=== PATIENT | female | born 1995 | race Caucasian/White ===

== ENCOUNTER 2017-01-27 19:25 | Emergency (ER) | payer SELFPAY ==
[~2017-01-27] VITALS: Ht 170.2 cm; Wt 72.9 kg
[~2017-01-27 19:25] MED LIST: ENDOCET 5-3251 EACH PO; IBUPROFEN800 MG PO; KEFLEX500 MG PO; PRENATAL TABLE1 EAC3 PO
[2017-01-27 23:13] VITALS: BP 102/64
== END 2017-01-27 23:17 | disposition home or self-care (01) ==
LOC: EME 19:25 → RME 19:25
DX: R51 Headache (principal); Z88.2 Allergy status to sulfonamides; Z86.79 Personal history of other diseases of the circulatory system; F17.200 Nicotine dependence, unspecified, uncomplicated
CPT/HCPCS: 70450; 99281; 99285; J0780; J1100; J7030; J7050

== ENCOUNTER 2017-02-10 07:03 | Emergency (ER) | payer SELFPAY ==
[~2017-02-10] VITALS: Ht 170.2 cm; Wt 72.8 kg
[2017-02-10 07:53] LABS: HEMATOCRIT 39.2 % (36.0-46.0); MCH 34.4 PG (29.0-34.0); MCHC 33.4 G/DL (30.0-36.0); MCV 102.9 FL (83-99); MEAN PLAT.VOLUME 11.7 uM^3 (9.5-12.4); PLATELET COUNT 283 K/uL (156-360); RBC DIS.WIDTH-CV 11.8 % (11.8-14.6); RBC DIS.WIDTH-SD 44.9 % (39-53); RED BLOOD COUNT 3.81 M/uL (3.80-5.20); WHITE BLOOD COUNT 11.7 K/uL (4.1-10.2)
[2017-02-10 08:18] LABS: QUANTITATIVE HCG < 4.0 MIU/ML
[2017-02-10 08:24] LABS: CHLORIDE 107 mEq/L (99-109); POTASSIUM 4.3 mEq/L (3.7-5.4); SODIUM 139 mEq/L (136-147)
[2017-02-10 08:27] LABS: GLUCOSE 95 mg/dL (70-99)
[2017-02-10 08:28] LABS: ANION GAP 7 MEQ/L (2-14)
[2017-02-10 08:29] LABS: TOTAL BILIRUBIN 0.2 mg/dL (0.0-1.0)
[2017-02-10 08:30] LABS: ALKALINE PHOSPHATASE 53 IU/L (3-129); GFR ESTIMATE (CALCULATED) > 59 mL/min/
[2017-02-10 08:31] LABS: UREA NITROGEN (BUN) 16 mg/dL (9-23)
[2017-02-10 08:34] LABS: LIPASE 24 U/L (1.0-51.0)
[2017-02-10 11:24] LABS: ADD MIUA? YES; BILIRUBIN NEGATIVE; BLOOD NEGATIVE; COLOR YELLOW ((YELLOW)); GLUCOSE (STRIP) NEGATIVE; KETONES NEGATIVE; LEUKOCYTES MODERATE; NITRITE POSITIVE; PROTEIN (STRIP) NEGATIVE; UROBILINOGEN 0.2 MG/DL (0.2-1.0)
[2017-02-10 11:45] LABS: BACTERIA RARE /HPF; EPITHELIAL CELLS RARE /HPF; MUCUS TRACE /LPF; RED BLOOD CELLS 0-5 /HPF (0-5); UCUL ADDED? NO
[2017-02-10] MEDS ORDERED: ZANTAC150 MG PO (11:49)
[2017-02-10 12:18] VITALS: BP 115/81
[2017-02-11] MEDS ORDERED: DOXYCYCLINE MO100 MG PO (00:40)
[2017-02-11] MEDS ORDERED: NORCO 5/3251 TABLET PO (00:40)
== END 2017-02-10 12:34 | disposition home or self-care (01) ==
LOC: EME 07:03
PROVIDERS: Emergency Medicine
DX: R10.31 Right lower quadrant pain (principal); F17.200 Nicotine dependence, unspecified, uncomplicated
CPT/HCPCS: 74177; 76705; 80053; 81003; 83690; 84702; 85027; 99281; 99285; J2270; J2405

== ENCOUNTER 2017-02-10 21:20 | Emergency (ER) | payer SELFPAY ==
[~2017-02-10] VITALS: Ht 167.6 cm; Wt 71.4 kg
[~2017-02-10 21:20] MED LIST changes: +ZANTAC150 MG PO
[2017-02-10 23:34] LABS: EOSINOPHIL COUNT 0.1 K/uL (0-0.3); HEMATOCRIT 38.7 % (36.0-46.0); IMMATURE GRANULOCYTE (%) 0.6 % (0.0-0.7); IMMATURE GRANULOCYTE COUNT 0.1 K/uL; INSTRUMENT ABS NEUTROPHIL CT 6.7 K/uL; MCH 34.2 PG (29.0-34.0); MCHC 33.6 G/DL (30.0-36.0); MCV 101.8 FL (83-99); MEAN PLAT.VOLUME 11.8 uM^3 (9.5-12.4); MONOCYTE COUNT 0.5 K/uL (0-0.8); NEUTROPHIL (%) 64.2 % (45-76); NEUTROPHIL COUNT 6.7 K/uL (1.8-6.4); PLATELET COUNT 273 K/uL (156-360); RBC DIS.WIDTH-CV 11.9 % (11.8-14.6); WHITE BLOOD COUNT 10.5 K/uL (4.1-10.2)
[2017-02-11 00:01] LABS: CHLORIDE 107 mEq/L (99-109); SODIUM 141 mEq/L (136-147)
[2017-02-11 00:03] LABS: GLUCOSE 79 mg/dL (70-99)
[2017-02-11 00:04] LABS: ANION GAP 10 MEQ/L (2-14)
[2017-02-11 00:07] LABS: GFR ESTIMATE (CALCULATED) > 59 mL/min/
[2017-02-11 00:08] LABS: UREA NITROGEN (BUN) 10 mg/dL (9-23)
[2017-02-11 00:30] LABS: ADD MIUA? YES; BILIRUBIN NEGATIVE; BLOOD SMALL; COLOR YELLOW ((YELLOW)); GLUCOSE (STRIP) NEGATIVE; KETONES 5; LEUKOCYTES SMALL; NITRITE POSITIVE; PROTEIN (STRIP) NEGATIVE; SPECIFIC GRAVITY 1.017 (1.000-1.030); UROBILINOGEN 0.2 MG/DL (0.2-1.0)
[2017-02-11] MEDS ORDERED: DOXYCYCLINE MO100 MG PO (00:40)
[2017-02-11] MEDS ORDERED: NORCO 5/3251 TABLET PO (00:40)
[2017-02-11 00:53] VITALS: BP 98/71
[2017-02-11 00:56] LABS: BACTERIA 3+ /HPF; EPITHELIAL CELLS RARE /HPF; HYALINE CASTS 0-5 /LPF; MUCUS NONE SEEN /LPF; RED BLOOD CELLS 0-5 /HPF (0-5)
[2017-02-11 13:21] LABS: CHLAMYDIA TRACHOMATIS NEGATIVE; NEISSERIA GONORRHOEAE POSITIVE
== END 2017-02-11 00:59 | disposition home or self-care (01) ==
LOC: EME 21:20
PROVIDERS: Physician Assistant
DX: N73.9 Female pelvic inflammatory disease, unspecified (principal); F17.200 Nicotine dependence, unspecified, uncomplicated; N83.209 Unspecified ovarian cyst, unspecified side
CPT/HCPCS: 80048; 81003; 85025; 87210; 87491; 87591; 99281; 99284; J0696

== ENCOUNTER 2017-09-27 22:03 | Emergency (ER) | payer OTHER ==
[~2017-09-27] VITALS: Ht 167.6 cm; Wt 70.6 kg
[~2017-09-27 22:03] MED LIST changes: +DOXYCYCLINE MO100 MG PO; +NORCO 5/3251 TABLET PO
[2017-09-27 23:20] LABS: APPEARANCE SL.HAZY ((CLEAR)); BILIRUBIN NEGATIVE; BLOOD NEGATIVE; COLOR YELLOW ((YELLOW)); GLUCOSE (STRIP) NEGATIVE; KETONES NEGATIVE; LEUKOCYTES SMALL; NITRITE POSITIVE; PROTEIN (STRIP) NEGATIVE; UROBILINOGEN 0.2 MG/DL (0.2-1.0)
[2017-09-27 23:30] LABS: HEMATOCRIT 40.2 % (36.0-46.0); MCH 35.6 PG (29.0-34.0); MCHC 34.8 G/DL (30.0-36.0); MCV 102.3 FL (83-99); PLATELET COUNT 234 K/uL (156-360); RBC DIS.WIDTH-CV 11.9 % (11.8-14.6); RBC DIS.WIDTH-SD 45.1 % (39-53); RED BLOOD COUNT 3.93 M/uL (3.80-5.20); WHITE BLOOD COUNT 11.1 K/uL (4.1-10.2)
[2017-09-27 23:50] LABS: ALBUMIN 4.4 g/dL (3.2-4.8); CHLORIDE 103 mEq/L (99-109); POTASSIUM 4.4 mEq/L (3.7-5.4); SODIUM 135 mEq/L (136-147)
[2017-09-27 23:52] LABS: BACTERIA RARE /HPF; EPITHELIAL CELLS 1+ /HPF; MUCUS TRACE /LPF; RED BLOOD CELLS 0-5 /HPF (0-5); UCUL ADDED? YES
[2017-09-27 23:53] LABS: GLUCOSE 90 mg/dL (70-99); TOTAL PROTEIN 6.9 g/dL (6.4-8.3)
[2017-09-27 23:54] LABS: TOTAL BILIRUBIN 0.6 mg/dL (0.0-1.0)
[2017-09-27 23:56] LABS: ALKALINE PHOSPHATASE 46 IU/L (3-129); CREATININE 0.8 mg/dL (0.6-1.3); GFR ESTIMATE (CALCULATED) > 59 mL/min/
[2017-09-27 23:57] LABS: UREA NITROGEN (BUN) 10 mg/dL (9-23)
[2017-09-27 23:58] LABS: AST (GOT) 13 IU/L (2-34)
[2017-09-27 23:59] LABS: ALT (GPT) 9 IU/L (3-49)
[2017-09-28 00:06] LABS: QUANTITATIVE HCG < 4.0 MIU/ML
[2017-09-28] MEDS ORDERED: KEFLEX500 MG PO (06:07)
[2017-09-28 06:51] VITALS: BP 110/72
== END 2017-09-28 06:53 | disposition home or self-care (01) ==
LOC: EME 22:03
DX: N30.90 Cystitis, unspecified without hematuria (principal); Q61.3 Polycystic kidney, unspecified; F17.200 Nicotine dependence, unspecified, uncomplicated; Z88.2 Allergy status to sulfonamides
CPT/HCPCS: 74176; 76705; 76770; 80053; 81003; 84702; 85027; 87077; 87086; 87186; 99281; 99284; J3010

== ENCOUNTER 2017-10-03 13:40 | Emergency (ER) | payer OTHER ==
[~2017-10-03] VITALS: Ht 167.6 cm; Wt 68.7 kg
[2017-10-03 14:22] VITALS: BP 115/63
[2017-10-04] MEDS ORDERED: KEFLEX500 MG PO (09:25)
== END 2017-10-03 18:26 | disposition left against medical advice (07) ==
LOC: EME 13:40
DX: L02.31 Cutaneous abscess of buttock (principal); Z53.21 Procedure and treatment not carried out due to patient leaving prior to being seen by health care provider

== ENCOUNTER 2017-10-04 06:17 | Emergency (ER) | payer OTHER ==
[~2017-10-04] VITALS: Ht 167.6 cm; Wt 67.3 kg
[2017-10-04] MEDS ORDERED: KEFLEX500 MG PO (09:25)
[2017-10-04 10:15] VITALS: BP 128/74
== END 2017-10-04 10:17 | disposition home or self-care (01) ==
LOC: EME 06:17
PROC: 0H98XZZ Drainage of Buttock Skin, External Approach (ICD-10-PCS; principal; 2017-10-04)
DX: L02.31 Cutaneous abscess of buttock (principal); F17.200 Nicotine dependence, unspecified, uncomplicated; Z88.2 Allergy status to sulfonamides
CPT/HCPCS: 99281; 99284

== ENCOUNTER 2018-01-22 17:31 | Emergency (ER) | payer OTHER ==
[~2018-01-22] VITALS: Ht 167.6 cm; Wt 65.5 kg
[2018-01-22] MEDS ORDERED: MOTRIN800 MG PO (18:39)
[2018-01-22] MEDS ORDERED: SKELAXIN800 MG PO (18:39)
[2018-01-22] MEDS ORDERED: VOLTAREN 1% GE100 GM TP (18:39)
[2018-01-22 19:08] VITALS: BP 129/93
== END 2018-01-22 19:10 | disposition home or self-care (01) ==
LOC: EME 17:31
DX: M54.41 Lumbago with sciatica, right side (principal); F17.200 Nicotine dependence, unspecified, uncomplicated; Z87.448 Personal history of other diseases of urinary system; Z86.69 Personal history of other diseases of the nervous system and sense organs; Z98.51 Tubal ligation status; Z88.2 Allergy status to sulfonamides
CPT/HCPCS: 99281; 99284; J1885

== ENCOUNTER 2018-01-23 22:07 | Emergency (ER) | payer OTHER ==
[~2018-01-23] VITALS: Ht 167.6 cm; Wt 65.0 kg
[~2018-01-23 22:07] MED LIST changes: +MOTRIN800 MG PO; +SKELAXIN800 MG PO; +VOLTAREN 1% GE100 GM TP
[2018-01-23 23:53] LABS: ALBUMIN 3.9 g/dL (3.2-4.8); HEMATOCRIT 35.4 % (36.0-46.0); HEMOGLOBIN 12.8 G/DL (11.9-15.5); MCH 35.7 PG (29.0-34.0); MCHC 36.2 G/DL (30.0-36.0); MCV 98.6 FL (83-99); RBC DIS.WIDTH-CV 11.9 % (11.8-14.6); RBC DIS.WIDTH-SD 43.8 % (39-53); RED BLOOD COUNT 3.59 M/uL (3.80-5.20)
[2018-01-23 23:54] LABS: CHLORIDE 105 mEq/L (99-109); POTASSIUM 3.5 mEq/L (3.7-5.4); SODIUM 138 mEq/L (136-147)
[2018-01-23 23:56] LABS: GLUCOSE 140 mg/dL (70-99); TOTAL PROTEIN 6.9 g/dL (6.4-8.3)
[2018-01-23 23:58] LABS: TOTAL BILIRUBIN 0.4 mg/dL (0.0-1.0)
[2018-01-23 23:59] LABS: ALKALINE PHOSPHATASE 63 IU/L (3-129)
[2018-01-24] LABS: CREATININE 0.8 mg/dL (0.6-1.3); GFR ESTIMATE (CALCULATED) > 59 mL/min/
[2018-01-24 00:01] LABS: AST (GOT) 14 IU/L (2-34); UREA NITROGEN (BUN) 8 mg/dL (9-23)
[2018-01-24 00:03] LABS: ALT (GPT) 14 IU/L (3-49)
[2018-01-24 00:06] LABS: APPEARANCE SL.HAZY ((CLEAR)); BILIRUBIN NEGATIVE; BLOOD MODERATE; COLOR YELLOW ((YELLOW)); GLUCOSE (STRIP) NEGATIVE; KETONES 5; LEUKOCYTES SMALL; NITRITE POSITIVE; PROTEIN (STRIP) 100; SPECIFIC GRAVITY 1.026 (1.000-1.030)
[2018-01-24 00:10] LABS: BACTERIA RARE /HPF; EPITHELIAL CELLS 1+ /HPF; MUCUS 4+ /LPF; UCUL ADDED? YES; WHITE BLOOD CELLS 30-40 /HPF (0-5)
[2018-01-24 00:10] LABS: QUANTITATIVE HCG < 4.0 MIU/ML
[2018-01-24 00:33] LABS: PLAT.SUFFICIENCY ADEQUATE; PLATELET CLUMPS PRESENT - PLATELET COUNT APPEARS ADQ.; PLATELET COUNT UNABLE TO REPORT K/uL (156-360)
[2018-01-24] MEDS ORDERED: ZOFRAN4 MG PO (01:40)
[2018-01-24] MEDS ORDERED: CIPRO500 MG PO (01:40)
[2018-01-24 01:47] LABS: SOURCE SWAB
[2018-01-24 01:53] VITALS: BP 101/76
== END 2018-01-24 01:53 | disposition home or self-care (01) ==
LOC: EME 22:07
PROVIDERS: Physician Assistant
DX: N10 Acute pyelonephritis (principal); B96.20 Unspecified Escherichia coli [E. coli] as the cause of diseases classified elsewhere; Z16.11 Resistance to penicillins; E28.2 Polycystic ovarian syndrome; F17.200 Nicotine dependence, unspecified, uncomplicated; Q61.3 Polycystic kidney, unspecified; Z86.79 Personal history of other diseases of the circulatory system; Z98.51 Tubal ligation status; Z88.2 Allergy status to sulfonamides
CPT/HCPCS: 74176; 80053; 81003; 84702; 85027; 87077; 87086; 87186; 87210; 87491; 87591; 99281; 99284